=== PATIENT | female | born 1955 | race Caucasian/White ===

== ENCOUNTER → 2018-09-10 | Outpatient (CLI) | payer OTHER ==
[~2018-09-10] MED LIST: AMBIEN 10 MG TA10 MG PO; ASPIRIN EC81 M1 PO; ATENOLOL 50 MG50 M1 PO; DICLOFENAC SOD50 M1 PO; FISH OIL 1,001000 M1 PO; FLOMAX PO; FOSAMAX40 MG PO; HYDROCHLOROTH12.5 MG PO; LIPITOR40 MG PO; PERCOCET 5-3251 EACH PO; RANITIDINE PO; VITAMIN D3400 UNI1 PO
== END ==
LOC: M.RAD 08-26 14:00
DX: Z12.31 Encounter for screening mammogram for malignant neoplasm of breast (principal); Z3A.00 Weeks of gestation of pregnancy not specified

== ENCOUNTER → 2019-09-15 | Outpatient (CLI) | payer OTHER | LOC: M.RAD 09:07 | DX: Z12.31 Encounter for screening mammogram for malignant neoplasm of breast (principal) ==

== ENCOUNTER → 2020-09-26 | Outpatient (CLI) | payer MEDICARE, OTHER | LOC: M.RAD 09:38 | PROVIDERS: ATTEND Pediatrics | DX: Z12.31 Encounter for screening mammogram for malignant neoplasm of breast (principal) ==

== ENCOUNTER → 2021-10-10 | Outpatient (CLI) | payer MEDICARE, OTHER | LOC: M.RAD 09:52 | PROVIDERS: ATTEND Hospitalist | DX: Z12.31 Encounter for screening mammogram for malignant neoplasm of breast (principal) ==